=== PATIENT | female | born 1965 | race Caucasian/White ===

== ENCOUNTER → 2017-05-20 | Day surgery (SDC) | payer MEDICAID ==
[~2017-05-20] VITALS: Ht 177.8 cm; Wt 120.5 kg
[~2017-05-20] MED LIST: ASPI81TA11 PO; BUPIVACAINE HCL PF 0.5% 30 ML VIAL ONE; BUTATAB6 PO; CANA300T PO; CARV25TA PO; CHLO200T5 PO; CHLORHEXIDINE GLUCONATE 2 % 1 PACK (2 CLOTHS) TOPICAL PRN; CLINDAMYCIN INJ 900 MG in SODIUM CHLORIDE 0.9% INJ 100 ML IV SCH; CLON0.5T PO; CYCL1POW; CYCL5TAB PO; DEXT 5%-NACL 0.45% 1000 ML INJ 1,000 ML IV SCH; DIPH25TA2 PO; DOXY100C PO; ESTR0.5T PO; FAMO20TA2 PO; FLUO1TAB3 PO; GABA600T PO; GEMF600T PO; HYDR-3516 PO; IBUP800T23 PO; INSULIN HUMAN REGULAR 1,000 UNITS/10 ML VIAL SQ PRN; LACTATED RINGER'S 1000 ML IV PRN; LANTUS2P; LEVO75TA3 PO; LISI-515 PO; LURA40 PO; MELO-1 PO; METOPROLOL TARTRATE 25 MG TAB PO PRN; ONDANSETRON HCL 4 MG/2 ML VIAL IV PUSH ONE; POVIDONE IODINE 10% OINT 1 PACKET TOPICAL ONE; POVIDONE IODINE 5% (ANTISEPSIS KIT) 4 APPLICATIONS EACH NARE PRN; PROPOFOL 200 MG/20 ML AMP IV ONE; RESP: ALBUTEROL 2.5 MG/3 ML NEB (SCH) ONE; SODIUM CHLORID 0.9% 500 ML IV PRN; SODIUM CHLORIDE 0.9% FLUSH 5 ML FLUSH IVF PRN; SODIUM CHLORIDE 0.9% FLUSH 5 ML FLUSH IVF SCH; SUGAMMADEX SODIUM 200 MG/2 ML VIAL IV PUSH ONE; TRAM50TA PO; ZETI10TA5 PO; [UNRECOGNIZED DRUG - CODE]; fentaNYL CITRATE 250 MCG/5 ML AMP ONE
[2017-05-20 08:10] VITALS: BP 119/66; PULSE 77; RESP 14; TEMP 98; O2SAT 97
[2017-05-20 08:29] LABS: HEMATOCRIT 47.7 % (35.0-46.0); MEAN CELL VOLUME 89.3 FL (80.0-100.0); MEAN CORPUSCULAR HEMOGLOBIN 28.7 PG (27.0-34.0); MEAN CORPUSCULAR HGB CONC 32.2 % (32.0-36.0); PLATELET COUNT 282 TH/MM3 (150-450); RED BLOOD COUNT 5.35 MIL/MM3 (4.00-5.30); RED CELL DISTRIBUTION WIDTH 15.3 % (11.6-17.2); REVIEW FLAG FINAL; WHITE BLOOD COUNT 9.2 TH/MM3 (4.0-11.0)
--- NOTE | 2017-05-20 09:04 | HP.UPD ---
H&P Update Date: May 20, 2017 Note The Pre-Admit History and Physical Examination regarding the above named patient was reviewed (including, but not limited to, vital signs, medications, allergies, co-morbid conditions), and upon re-examination it is noted that: Indicated with "X" x - the patient's condition has not significantly changed since the last examination. [] - the patient's condition has changed since the last examination. Changes: Yamilet Rosenberg MD May 20, 2017 09:04
--- NOTE | 2017-05-20 11:48 | HHI.PR ---
Immediate Post Op Note Procedure Date: May 20, 2017 Pre Op Diagnosis: (1) Carpal tunnel syndrome (2) Acquired trigger finger Post Op Diagnosis: (1) Carpal tunnel syndrome (2) Acquired trigger finger Surgeon: Yamilet Rosenberg Dye Worker(s): None. Procedure: Release of the left carpal tunnel. Nerve wrap to the left Median nerve. Release of the left trigger thumb. Anesthesia: General Drains: None Tourniquet time (min at mmHg) 85 minutes at 220 mm Hg. Patient to: PACU Patient Condition: Good Implant/Devices: SEE IMPLANT LOG (if applicable) Date/Time of Procedure: SEE SURGICAL CARE RECORD Yamilet Rosenberg MD May 20, 2017 11:48
[2017-05-20 13:25] VITALS: BP 93/63; PULSE 68; RESP 16; TEMP 98.2; O2SAT 91
--- NOTE | 2017-05-22 12:08 | MP ---
cc: VELASQUEZ FORD M.D. DATE OF SURGERY: 05/20/2017 PREOPERATIVE DIAGNOSIS: 1. Recurrent left carpal tunnel syndrome. 2. Stenosing tenosynovitis of the left thumb. POSTOPERATIVE DIAGNOSIS 1. Recurrent left carpal tunnel syndrome. 2. Stenosing tenosynovitis of the left thumb. PROCEDURE 1. Release of the left carpal tunnel. 2. Neurolysis under loupe magnification of the median nerve. 3. Application of nerve wrap to the left median nerve. 4. Release of the left trigger thumb. ANESTHESIA: General. SURGEON Velasquez Ford MD INDICATIONS 52-year-old female with a recurrent left carpal tunnel syndrome as well as trigger thumb. FINDINGS The nerve was completely encased in scar. At the completion of the procedure the scar was released from the distal forearm all the way past the carpal tunnel and a 7 millimeter nerve wrap was used to protect the nerve. In addition, she did have a right A1 dedra which was released. TOURNIQUET TIME: 85 minutes. PROCEDURE The patient was seen preoperatively where the sites and side were identified and marked. The patient was then taken to the operating room, placed in supine position. Her identity was checked against the arm band and the consent form, site and side confirmed, time-out called prior to beginning the procedure. The left upper extremity was prepped with Hibiclens and draped in usual sterile fashion. The area be incised was outlined with a marking pen as longitudinal incision just to the ulnar side of the midline and the palm. In addition, a transverse incision was designed at the base of the left thumb. The median nerve was blocked proximal to the wrist crease using bupivacaine. The arm was then exsanguinated and the tourniquet was inflated to 220 mmHg. A #15 blade was then used to make the incision down through the skin, down to the subcutaneous tissue, down to the palmar fascia. Small hole was poked in the palmar fascia and using the ulnar artery as a guide, Guyon's canal was released. The median nerve and its branches retracted radially. The ulnar nerve and artery retracted ulnarly and using the flexor tendon, the ring finger as a guide the carpal tunnel was released. Once the forearm fascia was reached, scissor was kept in a slightly open position and using the push technique was released proximally. The nerve was identified distally and was found to be encased in scarring and was carefully dissected free under loupe magnification. This was continued from distal to proximal. The scarring was severe once the fascicles were visualized and the median nerve was released. A 7 mm nerve wrap was placed in saline and then wrapped around the nerve for approximately 2.5 centimeters within the carpal tunnel and then sewn and closed using 8-0 Ethilon suture material. The stitches were then rotated dorsally. The wound was then closed with a running 4-0 nylon suture after being infiltrated with additional bupivacaine. Attention was then turned to the thumb where a transverse incision was made with a new 15 blade down through the skin, down to the subcutaneous tissue. Under loupe magnification using a spread technique superficial vessels and nerves identified and retracted exposing the A1 dedra of the tendon sheath. This was then released and excellent range of motion of the thumb was noted. It was totally unencumbered. Additional anesthetic was then injected in this area and the wound was closed with a running 4-0 nylon suture. Tourniquet was then released after 85 minutes of tourniquet time. Pressure was applied. After several minutes there was no evidence of any oozing and a dressing was applied using povidone-iodine ointment, Adaptic, Telfa, 4x4s and hand wrap. The patient was then taken from the operating room to the recovery room in satisfactory condition having tolerated the procedure well. Postoperative instructions include keeping the arm elevated, keeping it clean and dry, and returning in several days for follow up. The patient was given a prescription for doxycycline as a prophylactic antibiotic as well as ibuprofen for pain control. Velasquez Ford MD Tila/KELLEN /11:48 AM /11:54 AM
== END | disposition home or self-care (01) ==
LOC: PHSDC 07:42
PROVIDERS: ATTEND Specialist
DX: G56.02 Carpal tunnel syndrome, left upper limb (principal); M65.312 Trigger thumb, left thumb; E11.9 Type 2 diabetes mellitus without complications; I10 Essential (primary) hypertension; E78.5 Hyperlipidemia, unspecified; G47.30 Sleep apnea, unspecified; M19.90 Unspecified osteoarthritis, unspecified site
CPT/HCPCS: 01810; 26055; 36415; 64721; 64727; 82948; 85027; C9352; J2405; J3010; J7120; J7613

== ENCOUNTER → 2017-12-21 | Day surgery (SDC) | payer MEDICAID ==
[~2017-12-21] VITALS: Ht 177.8 cm; Wt 124.0 kg
[~2017-12-21] MED LIST changes: +ACET300T PO; -ASPI81TA11 PO; +ASPI81TA23 PO; +CIPR250T52 PO; +CIPROFLOXACIN/DEXT 400 MG/200 ML IV PRN; -CLINDAMYCIN INJ 900 MG in SODIUM CHLORIDE 0.9% INJ 100 ML IV SCH; -CYCL1POW; -DEXT 5%-NACL 0.45% 1000 ML INJ 1,000 ML IV SCH; +DICY10CA12 PO; +DIPH25CA PO; -DIPH25TA2 PO; -DOXY100C PO; +EZET10 PO; -FLUO1TAB3 PO; +HYDR-3366 PO; -IBUP800T23 PO; -INSULIN HUMAN REGULAR 1,000 UNITS/10 ML VIAL SQ PRN; -LANTUS2P; +LANTUS2P SQ; +LIDOCAINE HCL 2% 50 ML VIAL ONE; -LURA40 PO; -MELO-1 PO; +MELO15TA20 PO; +NEOMYCIN/POLYMYXIN 1 ML G.U. IRRIGANT ONE; -ONDANSETRON HCL 4 MG/2 ML VIAL IV PUSH ONE; -POVIDONE IODINE 10% OINT 1 PACKET TOPICAL ONE; -PROPOFOL 200 MG/20 ML AMP IV ONE; +PROPOFOL 200 MG/20 ML AMP ONE; +PROPOFOL 500 MG/50 ML INJ 50 ML ONE; -RESP: ALBUTEROL 2.5 MG/3 ML NEB (SCH) ONE; -SODIUM CHLORIDE 0.9% FLUSH 5 ML FLUSH IVF PRN; -SODIUM CHLORIDE 0.9% FLUSH 5 ML FLUSH IVF SCH; -SUGAMMADEX SODIUM 200 MG/2 ML VIAL IV PUSH ONE; +SUMA100T2 PO; -ZETI10TA5 PO; -[UNRECOGNIZED DRUG - CODE]; +diphenhydrAMINE HCL 50 MG/ML VIAL ONE; -fentaNYL CITRATE 250 MCG/5 ML AMP ONE
[2017-12-21 09:55] LABS: HEMATOCRIT 45.6 % (35.0-46.0); MEAN CORPUSCULAR HEMOGLOBIN 31.5 PG (27.0-34.0); MEAN PLATELET VOLUME 7.7 FL (7.0-11.0); PLATELET COUNT 260 TH/MM3 (150-450); RED BLOOD COUNT 5.06 MIL/MM3 (4.00-5.30); RED CELL DISTRIBUTION WIDTH 14.1 % (11.6-17.2)
[2017-12-21 13:35] VITALS: BP 104/56; PULSE 68; RESP 16; TEMP 97.8; O2SAT 93
--- NOTE | 2017-12-21 14:11 | MP ---
cc: Bandar Paris MD DATE OF OPERATION: 12/21/2017 DATE OF OPERATION: 12/21/2017 PREOPERATIVE DIAGNOSIS: 1. Recurrent carpal tunnel syndrome. 2. Right ulnar neuropathy of the wrist. PROCEDURE: 1. Right open carpal tunnel release, redo, extensive neurolysis, NeuraWrap placement, 22 modifier. 2. Right ulnar nerve release at the wrist. 3. Flexor tenolysis of the right FPL, FDS two, three and four flexor tendons. SURGEON: Bandar Paris III, MD PROCEDURE: The patient was brought to the operating room and placed supine on the operating table. After the correct site and side of surgery were verified by members of each team in the room multiple times including the patient, myself and after adequate IV sedation had been achieved the right upper extremity was prepped and draped in the traditional sterile surgical fashion. The 22 modifier is being added to this because of the extensive dissection needed and the fact that this is a redo operation with scar adhesion to the nerve. The incision utilizing the old incision and extending it proximally and distally was used in the base of the palm in a longitudinal fashion with angles across the wrist flexion crease. Blunt dissection was performed. Bipolar electrocautery was used as needed. Carson tissue was identified proximally and then traced distally and incredible amount of scar tissue around the media nerve was encountered and this was then meticulously dissected until it reached the distal aspect of natural tissue with no scar involvement. The thenar motor branch was identified and it was also intact and found to be non-compromised. There was a sheath of scar tissue around the media nerve as well as tenting it over ulnarly adhering it to the wall of the carpal tunnel. This was all freed. Thorough irrigation was performed. There is a significant hypertrophic tenosynovium around all the flexor tendons and a lot of this was then resected and sent off the field for microscopic and pathologic analysis. It did not appear grossly infected by any means. The flexor tendons were also noted to be scarred together, so these were freed, particularly the flexor pollicis longus tendon and then the flexor digitorum superficialis tendon to the index, middle and ring fingers. All other tendons were free. A liters worth of saline irrigation was then used to thoroughly flush out the wound. A 10 mm NeuraWrap tube was then selected and secured in place, wrapping the median nerve and gently securing it in place and to itself with epineural sutures and sutured just to itself using 5-0 Nylon. It did not encroach upon the thenar branch. There were no other anatomic abnormalities identified. Thorough irrigation was performed. Again, the air was flushed out of the NeuraWrap tube, then the skin edges reapproximated using interrupted and running 4-0 Nylon sutures. Attention was then paid to the area of the ulnar nerve and a stairstep incision over the location of the neurovascular bundle at Guyon's canal was made and carried down through skin and subcutaneous tissue. Blunt dissection was performed. Bipolar electrocautery was used as needed. The neurovascular bundle was identified proximally. The ulnar nerve was deep to the ulnar artery and there were several thick bands of tissue tenting the nerve downward and these were all disrupted. The nerve was free from the distal forearm through the bifurcation distally in the palm. The axillary tourniquet was released and the hand and all the fingers became immediately soft, pink and warm and had brisk capillary refill of less than 2 seconds. It was inflated for a total of 47 minutes. There was no active bleeding. The ulnar artery was full and pulsatile, had no evidence of bleeding. The skin edges were reapproximated using interrupted and running 4-0 nylon sutures. The hand and arm were thoroughly cleansed and dried. Additional local anesthetic was infiltrated subcutaneously. The hand and arm were thoroughly cleansed and dried. Betadine and Adaptic dressing was applied on top of the wounds followed by a bulky soft dressing, and then a partially mobilizing circumferential soft dressing was applied in the usual fashion. The patient was awakened from anesthesia and transported to the post anesthesia care unit awake and in stable condition at the end of the case. Sponge, needle and instrument counts were correct at the end of the case as reported by the nurses in the room. MD SHAYLEE Ralph/SEDA/abigail , 12:53 PM , 01:34 PM
== END | disposition home or self-care (01) ==
LOC: PHSDC 08:45
PROVIDERS: ATTEND Orthopaedic Surgery Hand Surgery
DX: G56.01 Carpal tunnel syndrome, right upper limb (principal); G56.21 Lesion of ulnar nerve, right upper limb; E11.9 Type 2 diabetes mellitus without complications
CPT/HCPCS: 01810; 26440; 36415; 64910; 82948; 85027; 87015; 87070; 87102; 87116; 87176; 87205; 87206; C9352; J0744; J1200; J7120

== ENCOUNTER → 2018-04-05 | Day surgery (SDC) | payer MEDICAID ==
[~2018-04-05] VITALS: Ht 177.8 cm; Wt 122.0 kg
[~2018-04-05] MED LIST changes: +ACETAMINOPHEN 1000 MG/100 ML 100 ML IV ONE; +ACETAMINOPHEN/HYDROcodone 325 MG/7.5 MG TAB ONE; +ASCO500C PO; +BUPIVACAINE HCL PF 0.5% 10 ML VIAL ONE; -BUPIVACAINE HCL PF 0.5% 30 ML VIAL ONE; -CIPROFLOXACIN/DEXT 400 MG/200 ML IV PRN; +CLON1TAB PO; -DICY10CA12 PO; +HYDR-3288 PO; +LEVEMIR SQ; +MULTTAB67 PO; -PROPOFOL 200 MG/20 ML AMP ONE; -PROPOFOL 500 MG/50 ML INJ 50 ML ONE; -diphenhydrAMINE HCL 50 MG/ML VIAL ONE
[2018-04-05] MEDS: VANCOMYCIN 1000 MG/NS 250 ML ON-CALL IV SCH ×4 (08:54→09:10)
[2018-04-05 11:20] VITALS: PULSE 92; TEMP 98.3
[2018-04-05 11:49] VITALS: PULSE 77
[2018-04-05 12:31] VITALS: BP 98/47; PULSE 80; RESP 16; O2SAT 91
--- NOTE | 2018-04-05 13:06 | EKG ---
Date Performed: 04/05/2018 Time Performed: 08:52:17 PTAGE: 53 years EKG: Sinus rhythm MARKED LEFT AXIS DEVIATION MODERATE INTRAVENTRICULAR CONDUCTION DELAY ABNORMAL ECG PREVIOUS TRACING : 09/22/2015 08.30 DOCTOR: Andres Terrell Interpretating Date/Time 04/05/2018 13:03:38
--- NOTE | 2018-04-05 13:32 | MP ---
cc: Bandar Paris MD DATE OF OPERATION: 04/05/2018 PREOPERATIVE DIAGNOSIS: Right volar wrist mass. POSTOPERATIVE DIAGNOSIS: Right volar wrist mass. PROCEDURE PERFORMED: 1. Right carpal tunnel exploration. 2. Right carpal tunnel prosthetic nerve wrap removal. 3. Right carpal tunnel volar wrist mass excisional biopsy. 4. Right carpal tunnel flexor synovectomy, radical. SURGEON: Bandar Paris III, MD DESCRIPTION OF PROCEDURE: The patient was brought to the operating room and placed supine on the operating room table. After the correct site and surgery were verified by members of each team in the room multiple times including the patient and myself and after adequate preoperative markings and preoperative written consent were verified by everyone and after adequate preoperative timeout was performed to everyone's satisfaction and after adequate general anesthesia had been achieved, the right upper extremity was prepped and draped in the traditional sterile surgical fashion. A 50/50 mixture of 2% plain lidocaine and 0.5% plain Marcaine was infiltrated in the skin and subcutaneous tissue in the area of the planned incision. The limb was exsanguinated using gravity with pressure held on the brachial artery for 1 minute and a highly placed well-padded axillary tourniquet was inflated to 200 mmHg for a total of 39 minutes. An incision using the old incision was made and carried down through skin and subcutaneous tissue. Immediately identified was a mass that was inflammatory in nature and this was excised. The median nerve was lying very superficially and the old NeuraWrap nerve protector was exposed and parts of it were fragmented. Parts of it that were deep were scarred in and this was all debrided with complete neurolysis of the median nerve into the palm and into the distal forearm was performed. The entire NeuraWrap was removed. The flexor tendons had a very angry looking synovitis and a radical synovectomy was performed. Cultures were obtained. Specimens were obtained in multiples and passed off the field to be analyzed by microbiology as well as pathology. There were no other gross abnormalities anywhere. The nerve was incontinuity and intact, as were the tendons. They had not been eroded. Thorough irrigation with a liters worth of saline was performed. There was no gross purulence or anything obviously actively infected. The skin edges were reapproximated using interrupted and running 3-0 Vicryl suture and a 1/4 inch Eunice drain was left coming out from the proximal most aspect of the wound and placed deep into the palm. The hand and arm were thoroughly cleansed and dried. Betadine, Adaptic dressing was applied on top of the wound followed by a bulky soft dressing and then a well-padded, well-molded volar immobilizing wrist splint was made in the usual fashion. The axillary tourniquet was released prior to this part and the hand and all fingers of the left became immediately soft, pink, warm and had brisk capillary refill of less than 2 seconds. At this time, the splint was applied. MD SHAYLEE Ralph/LILLIAM , 01:06 PM , 01:32 PM
== END | disposition home or self-care (01) ==
LOC: PHSDC 07:34
PROVIDERS: ATTEND Orthopaedic Surgery Hand Surgery
DX: M65.9 Synovitis and tenosynovitis, unspecified (principal); R22.31 Localized swelling, mass and lump, right upper limb; S61.501D Unspecified open wound of right wrist, subsequent encounter; B95.61 Methicillin susceptible Staphylococcus aureus infection as the cause of diseases classified elsewhere; G56.03 Carpal tunnel syndrome, bilateral upper limbs; G56.21 Lesion of ulnar nerve, right upper limb; I10 Essential (primary) hypertension; E11.9 Type 2 diabetes mellitus without complications; Z79.4 Long term (current) use of insulin; Z79.82 Long term (current) use of aspirin
CPT/HCPCS: 01810; 25101; 25115; 82948; 86403; 87015; 87070; 87102; 87116; 87176; 87186; 87205; 87206; 88305; 88312; 93005; J0131; J3010; J3370; J7050; J7120